=== PATIENT | male | born 1960 | race Caucasian/White ===

== ENCOUNTER 2022-01-04 10:07 | Emergency (ER) | payer BC, SELFPAY ==
--- NOTE | 2022-01-04 10:15 | RT.EKG_ITS ---
APPROVED REPORT Exam: Resting ECG Reason for Exam: dizziness Patient Location: E HR:71 bpm ECG Measurements Heart Rate 71 AXIS OK 165 P 32 QRSd 121 QRS -51 QT 378 T 17 QTc 410 Conclusion Sinus rhythm...normal P axis, V-rate 60- 99 Sinus. No STEMI. I have reviewed and interpreted ECG and agree with software generated interpretation.
[2022-01-04 10:17] VITALS: BP 122/71; PULSE 71; RESP 18; TEMP 36.2; O2SAT 96
[2022-01-04 10:52] LABS: Abs Immature Grans 0.02 10^3/uL (0.0-0.06); Absolute Basophil Count 0.03 10^3/uL (0.0-0.2); Absolute Eosinophil Count 0.07 10^3/uL (0.0-0.7); Absolute Lymphocyte Count 0.92 10^3/uL (1.2-3.4); Absolute Monocyte Count 0.54 10^3/uL (0.1-0.8); Absolute Neutrophil Count 3.48 10^3/uL (1.2-6.7); Basophils % 0.6; Eosinophils % 1.4; HCT 45.1 % (40.0-50.0); HGB 15.9 g/dL (13.5-17.5); Immature Grans % 0.4; Lymphocytes % 18.2; MCH 33.7 pg (27.0-33.0); MCHC 35.3 % (32.0-36.0); MCV 96 fL (80-95); MPV 8.9 fL (8.0-11.0); Monocytes % 10.7; Neutrophils % 68.7; Platelet Count 228 10^3/uL (130-400); RBC 4.72 10^6/uL (4.36-5.78); RDW 12.3 % (11.8-14.1); RDW-SD 43.5 fL; WBC 5.06 10^3/uL (4.4-10.8)
[2022-01-04 11:10] LABS: ALT 38 U/L (16-63); AST 25 U/L (15-37); Albumin 3.7 g/dL (3.4-5.0); Alkaline Phosphatase 58 U/L (46-116); Anion Gap 7.6 mmol/L (3-11); BUN 18 mg/dL (7-18); Bilirubin, Total 0.8 mg/dL (0.2-1.0); CO2 26.4 mmol/L (21.0-32.0); CREATININE 0.9 mg/dL (0.70-1.30); Calcium 8.9 mg/dL (8.5-10.1); Chloride 105 mmol/L (98-107); Glucose 107 mg/dL (74-106); Magnesium 1.8 mg/dL (1.8-2.4); Sodium 139 mmol/L (136-145); Total Protein 7.3 g/dL (6.4-8.2); Troponin I < 50 ng/L (<or=60)
[2022-01-04 11:12] VITALS: RESP 17
--- NOTE | 2022-01-04 11:15 | DI.RAD_ITS ---
Exam(s) XR CHEST 2V PA LATERAL EXAM: XR CHEST 2V PA LATERAL CLINICAL HISTORY: dizziness, r/o acute disease TECHNIQUE: 2D digital imaging was performed. COMPARISON: No exams were available for comparison FINDINGS: MEDIASTINUM: Normal. HEART: Normal. PULMONARY VASCULATURE: Normal. LUNGS: Clear. PLEURAL SPACE: No pleural effusion or pneumothorax. BONE:Unremarkable for age. IMPRESSION: No acute abnormality. DATA REPOSITORY: RADIATION DOSE DELIVERED:
--- NOTE | 2022-01-04 11:15 | DI.CT_ITS ---
Exam(s) CT BRAIN NECK CTA EXAM: CT BRAIN NECK CTA CLINICAL HISTORY: vertigo/lightheaded, r/o acute cva. TECHNIQUE: Imaging Protocol: Axial CT angiography was performed with multi-slice acquisition and mu lti-planar and 3D reconstructions. CONTRAST MATERIAL: Intravenous: Omnipaque 350 Contrast volume:100 COMPARISON: No exams were available for comparison FINDINGS: CT Head W/O and W contrast: Ventricles and Extra axial spaces: Normal in size and morphology for the patient's age. Hemorrhage: None. Cerebral parenchyma: Normal. Midline shift: None. Brainstem/Cerebellum: Normal. Calvarium: Normal. Visualized Paranasal sinuses/Mastoids: Mucous retention at the floor of the right maxillary sinus. Soft Tissues: Unremarkable. Enhancement: Normal. CTA Brain W: Internal Carotid Arteries: Petrous: Normal. Cavernous: Normal. Cerebral: Normal. Middle Cerebral Arteries: Right: No aneurysm, occlusion or significant stenosis. Left: No aneurysm, occlusion or significant stenosis. Anterior Cerebral Arteries: Right: No aneurysm, occlusion or significant stenosis. Left: No aneurysm, occlusion or significant stenosis. Posterior cerebral Arteries: Right: No aneurysm, occlusion or significant stenosis. Left: No aneurysm, occlusion or significant stenosis. Vertebral Arteries: Right: No aneurysm, occlusion or significant stenosis. Left: No aneurysm, occlusion or significant stenosis. Basilar Artery: No aneurysm, occlusion or significant stenosis. CTA Neck W: Common Carotid: Right: No aneurysm, occlusion or significant stenosis. Left: No aneurysm, occlusion or significant stenosis. External Carotid: Right: Unremarkable. Left: Unremarkable. Internal Carotid: Right: Markedly tortuous vessel. No visible plaque. No aneurysm, dissection, occlusion or significa nt stenosis. Left: Markedly tortuous vessel. No visible plaque. No aneurysm, dissection, occlusion or significan t stenosis. Vertebral Artery: Right: No dissection, aneurysm, occlusion or significant stenosis. Left: No dissection, aneurysm, occlusion or significant stenosis. Lung Apices: Normal. Bones: Degenerative disc changes at C5-6 and C6-7. Soft Tissues: Normal. IMPRESSION: 1. Normal CTA examination of the [place]. 2. Unremarkable CT Head. 3. Normal CTA examination of the neck. RADIATION DOSE DELIVERED: 2,355.47mGy.cm Total DLP DATA REPOSITORY: All CT scans at this facility are submitted to the National Radiology Data Registry (NRDR) Dose Index Registry (DIR) with the [employer] (A[employer]). RADIATION OPTIMIZATION: All CT scans at this facility use at least one of these dose optimization te chniques: automated exposure control; mA and/or kV adjustment per patient size (includes targeted exa ms where dose is matched to clinical indication); or iterative reconstruction.
--- NOTE | 2022-01-04 11:26 | ED.GENADUL_ITS ---
Discharge Plan Disposition Patient Disposition: HOME Condition: Improving Discharge Details Clinical Impression: Dizziness Primary Care Provider: Unknown,Unknown ED Provider: Callie Kimbrough Home Meds and New Rx's Prescriptions: No Action No Known Home Meds Discharge Instructions Instructions: Dizziness (ED) Additional Instructions: Your blood tests, EKG and imaging today are reassuring and show no evidence of acute concerning or significant findings. Your Tick and Lyme panel test is pending and you will be notified of any positive results. You can also contact the hospital for your results when available. Drink plenty of fluids and get plenty of rest. Follow-up with your primary care doctor in 1 week. Return to the emergency department with any worsening or new concerning symptoms. Discharge Data Discharge Date/Time-TO BE ENTERED AT DEPARTURE: 01/04/22 18:19 Discharge Physician: Callie Kimbrough Medical Decision Making 61yo M who presents to the ED w/ a c/o 2 episodes of dizziness this week, last one occurring this morning. Patient states he has no symptoms at this time and feels fine. EKG notes rate of 71, sinus tach, no STEMI nondiagnostic. Patient appears comfortable he is nontoxic. His vitals are within normal limits. Normal TMs bilaterally. No focal deficits. No meningeal signs. History and presentation does not appear consistent with ACS, PE, dissection or meningitis. Suspect dehydration considering the increased exertion and decreased p.o. intake in addition to increase in alcohol use in the past week. He demonstrates no signs of alcohol withdrawal. Will obtain labs, chest x-ray, CTA head and neck, give fluids and meclizine and reassess. Labs and imaging reviewed and unremarkable. Will troponin negative. Electrolytes within normal limits. Urinalysis negative. Patient admits to a recent tick bite but denies any known bull's-eye rash. He is requesting a tick and Lyme panel which was obtained and pending. CT head and neck negative. Patient reassessed and he remains asymptomatic. Patient was able to ambulate to the bathroom and denied any complaint of headache, dizziness, chest pain, shortness of breath and would like to go home. He declines prescription for meclizine. He is advised to increase fluids, rest and follow-up with his primary care doctor for evaluation. Usual and customary return precautions given prior to discharge. Medical Records Medical records reviewed: Yes I reviewed the patient's medical records. Imaging Data Radiologic Study: Radiologist's impression: CT BRAIN ? NECK CTA CLINICAL HISTORY: ? vertigo/lightheaded, r/o acute cva. ? TECHNIQUE:? Imaging Protocol:? Axial CT angiography was performed with multi-slice acquisition and multi-planar and 3D reconstructions. CONTRAST MATERIAL:? Intravenous: Omnipaque 350 Contrast volume:100 COMPARISON:? No exams were available for comparison FINDINGS: CT Head W/O and W contrast: Ventricles and Extra axial spaces: Normal in size and morphology for the patient's age. Hemorrhage: None. Cerebral parenchyma: Normal. Midline shift: None. Brainstem/Cerebellum: Normal. Calvarium: Normal. Visualized Paranasal sinuses/Mastoids: Mucous retention at the floor of the right maxillary sinus.? Soft Tissues: Unremarkable. Enhancement: Normal. CTA Brain W: Internal Carotid Arteries: Petrous: Normal. Cavernous: Normal. Cerebral: Normal. Middle Cerebral Arteries: Right:? No aneurysm, occlusion or significant stenosis. Left:? No aneurysm, occlusion or significant stenosis. Anterior Cerebral Arteries: Right:? No aneurysm, occlusion or significant stenosis. Left:? No aneurysm, occlusion or significant stenosis. Posterior cerebral Arteries: Right:? No aneurysm, occlusion or significant stenosis. Left:? No aneurysm, occlusion or significant stenosis. Vertebral Arteries: Right:? No aneurysm, occlusion or significant stenosis. Left:? No aneurysm, occlusion or significant stenosis. Basilar Artery:? No aneurysm, occlusion or significant stenosis. CTA Neck W: Common Carotid: Right:? No aneurysm, occlusion or significant stenosis. Left:? No aneurysm, occlusion or significant stenosis. External Carotid: Right:? Unremarkable. Left: Unremarkable.? Internal Carotid: Right: Markedly tortuous vessel.? No visible plaque.? No aneurysm, dissection, occlusion or significant stenosis. Left: Markedly tortuous vessel.? No visible plaque.? No aneurysm, dissection, occlusion or significant stenosis. Vertebral Artery: Right:? No dissection, aneurysm, occlusion or significant stenosis. Left:? No dissection, aneurysm, occlusion or significant stenosis. Lung Apices: Normal. Bones: Degenerative disc changes at C5-6 and C6-7. Soft Tissues: Normal. IMPRESSION: 1. Normal CTA examination of the [place]. 2. Unremarkable CT Head. 3. Normal CTA examination of the neck.? XR CHEST 2V PA ? LATERAL CLINICAL HISTORY:? dizziness, r/o acute disease TECHNIQUE:? 2D digital imaging was performed. COMPARISON:? No exams were available for comparison FINDINGS: MEDIASTINUM: Normal.? HEART: Normal. PULMONARY VASCULATURE: Normal. LUNGS: Clear. ? PLEURAL SPACE: No pleural effusion or pneumothorax. BONE:Unremarkable for age.? IMPRESSION: No acute abnormality.? Lab Data Lab results reviewed: Yes I reviewed the patient's lab results. Labs: Laboratory Tests Range/Units 01/04/22 01/04/22 01/04/22 10:43 10:43 11:30 WBC (4.4-10.8) 10^3/uL 5.06 RBC (4.36-5.78) 10^6/uL 4.72 Hgb (13.5-17.5) g/dL 15.9 Hct (40.0-50.0) % 45.1 MCV (80-95) fL 96 H MCH (27.0-33.0) pg 33.7 H MCHC (32.0-36.0) % 35.3 RDW (11.8-14.1) % 12.3 Plt Count (130-400) 10^3/uL 228 MPV (8.0-11.0) fL 8.9 Immature Gran % 0.4 Neutrophils % 68.7 Lymphocytes % 18.2 Monocytes % 10.7 Eosinophils % 1.4 Basophils % 0.6 Nucleated RBC % (0.0-0.3) % 0.0 Absolute Neutrophils (1.2-6.7) 10^3/uL 3.48 Absolute Lymphocytes (1.2-3.4) 10^3/uL 0.92 L Absolute Monocytes (0.1-0.8) 10^3/uL 0.54 Absolute Eosinophils (0.0-0.7) 10^3/uL 0.07 Absolute Basophils (0.0-0.2) 10^3/uL 0.03 Sodium (136-145) mmol/L 139 Potassium (3.5-5.1) mmol/L 4.0 Chloride (98-107) mmol/L 105 Carbon Dioxide (21.0-32.0) mmol/L 26.4 Anion Gap (3-11) mmol/L 7.6 BUN (7-18) mg/dL 18 Creatinine (0.70-1.30) mg/dL 0.9 Estimated GFR/1.73 m2 (mL/min/1.73m2) >= 60.00 Glucose (74-106) mg/dL 107 H Calcium (8.5-10.1) mg/dL 8.9 Magnesium (1.8-2.4) mg/dL 1.8 Total Bilirubin (0.2-1.0) mg/dL 0.8 AST (15-37) U/L 25 ALT (16-63) U/L 38 Alkaline Phosphatase (46-116) U/L 58 Troponin I (<or=60) ng/L < 50 Total Protein (6.4-8.2) g/dL 7.3 Albumin (3.4-5.0) g/dL 3.7 Urine Color (Yellow) Yellow Urine Clarity (Clear) Clear Urine pH (5-8) 5.5 Ur Specific [place] (1.005-1.025) 1.010 Urine Protein (Negative) mg/dL Negative Urine Ketones (Negative) mg/dL Negative Urine Blood (Negative) Negative Urine Nitrite (Negative) Negative Urine Bilirubin (Negative) Negative Urine Urobilinogen (Up TO 0.2) EU/dL 0.2 Ur Leukocyte Esterase (Negative) Negative Urine Glucose (Negative) mg/dL Negative ECG Data Attestation: I personally reviewed and interpreted this ECG (s) as follows: Interpretation: rate of 71, sinus, no stemi HPI General Mode of arrival: ambulatory . Date/Time Provider Initiated Documentation: 01/04/22 10:22 . Limitations to Documentation: no limitations . Information obtained by: patient . HPI Narrative: Patient is a 61-year-old male with no significant medical history presents to the ED with a complaint of an episode of dizziness tonight with ago and did not another episode this morning. Patient states he is visiting here from [place] and has mountain biking. Here he states he has been in the active throughout the right days and frequently walking and biking. He he states he had not drink as much water to supplement for his amount of Ex-Lax. He states ago he went to lay down in the bed and noted a sensation of spinning which lasted a few seconds and then resolved. He states he felt fine since then until late morning when he had his arms above his head attempting to manage a light bulb and felt a sensation of lightheadedness and feeling balance. He states that he began walking when he thought he was falling due to feeling off balance. States this lasted a few minutes and then resolved. He denies any symptoms of headache, blurry vision, chest pain, shortness of breath, abdominal pain, nausea, vomiting or diarrhea and continued episodes. ED he states he has been drinking 2-3 alcoholic drinks daily for the past weekly while on vacation. He states that his last drink was last night. States the today home COVID test due to his symptoms of dizziness 2 days ago which was negative. Patient currently denies any symptoms at this time and states I feel fine now. Related Data Home Medications Medication Instructions Recorded Confirmed Unknown [No Known Home Meds] 01/04/22 01/04/22 Allergies Allergy/AdvReac Type Severity Reaction Status Date / Time Sulfa (Sulfonamide Allergy Hives Unverified 01/04/22 10:20 Antibiotics) General Stated Complaint: Dizzy/Sync DIANE: 3 Review of Systems All systems reviewed & are unremarkable except as noted in HPI and below Constitutional Constitutional: Denies chills, Denies excessive sweating, Denies fatigue, Denies fever(s), Denies weakness and Denies weight loss Eyes Eyes: Reports system reviewed and no additional complaints, except as documented and Denies blurry vision ENT Ears, Nose, Mouth, and Throat: Denies vertigo, Reports dizziness, Denies otalgia, Denies nasal congestion, Denies sore throat and Denies throat swelling Cardiovascular Cardiovascular: Denies chest pain, Denies syncope, Denies rapid heart rate and Denies dyspnea Respiratory Respiratory: Denies chest congestion, Denies cough, Denies pain on inspiration and Denies dyspnea Gastrointestinal Gastrointestinal: Denies abdominal pain, Denies diarrhea and Denies vomiting Genitourinary Genitourinary: Denies hematuria, Denies dysuria and Denies flank pain Musculoskeletal Musculoskeletal: Denies back pain and Denies joint swelling Integumentary/Breasts Skin/Breast: Denies lesions and Denies rash Neurologic Neurologic: Denies behavioral changes, Denies confusion, Denies vertigo, Reports dizziness, Denies syncope, Denies localized weakness and Denies weakness Psychiatric Psychiatric: Denies behavioral changes, Denies confusion and Denies depression Endocrine Endocrine: Denies excessive sweating and Denies fatigue Hematologic/Lymphatic Hematologic/Lymphatic: Denies easy bruising and Denies lymphadenopathy Allergic/Immunologic Allergic/Immunologic: Denies throat swelling PFSH All Active Problems (Updated 01/04/22 @ 13:17 by Callie Kimbrough DO) Dizziness (Acute) Medical History (Updated 01/04/22 @ 13:17 by Callie Kimbrough DO) No significant past medical history Surgical History (Updated 01/04/22 @ 11:26 by Callie Kimbrough DO) H/O arthroscopy of left knee History of hernia repair Social History Smoking/Tobacco Use Status: Never Smoking risk assessment performed?: Yes Alcohol Intake: current Alcohol Intake frequency: a few times a week Drug use: Never Substance use type: does not use Details: THC gummies for sleep Do you feel safe at home: Yes Do you feel safe in your relationship?: Yes Exam Const General: cooperative and healthy appearing Orientation: alert, awake and oriented x3 HENMT Head: normal to inspection Ears: hearing grossly normal bilaterally, external ears normal and TM's normal bilaterally General nose exam: external nose normal Face and sinus: normal facial exam Mouth: oral mucosae normal Teeth and gingiva: dentition normal Throat: posterior oropharynx normal Eyes General: appearance normal, both eyes and all related structures Eyelids: eyelids normal Pupils: PERRL EOM: EOM intact bilaterally Neck Neck: normal visual inspection Lymphatic: no lymphadenopathy noted Chest Chest: normal inspection of the chest Resp Effort & Inspection: normal respiratory effort and able to speak in complete sentences Auscultation: clear to auscultation bilaterally Cardio Rate: regular rate Rhythm: regular rhythm GI Inspection: normal to inspection Palpation: soft, not firm, no guarding, no hepatosplenomegaly, no masses and nontender Auscultation: normal bowel sounds Back/Spine/Pelvis Back: no CVA tenderness Skin General skin exam: no rashes or lesions noted Neuro General: patient alert, patient awake, patient oriented x3, moves all extremities and no meningeal signs Cognition: normal cognition Speech: speech normal Gait: normal gait Motor: muscle tone normal throughout and strength 5/5 throughout Sensory Exam: no sensory deficits noted Extrem General: normal to inspection, full ROM, capillary refill normal and no edema Psych Appearance: grossly normal Mental Status: mental status grossly normal Speech and Movement: speech and movement normal Affect: normal affect Thought Process: normal Course Vital Signs Vital signs: Vital Signs Temperature 97.2 F L 01/04/22 10:17 Pulse 71 01/04/22 10:17 Respiratory Rate 18 01/04/22 10:17 Blood Pressure 122/71 01/04/22 10:17 Pulse Oximetry 96 01/04/22 10:17 Temperature 97.2 F L 01/04/22 10:17 Pulse 71 01/04/22 10:17 Respiratory Rate 17 01/04/22 11:12 Respiratory Effort Non-Labored 01/04/22 11:12 Respiratory Depth Normal 01/04/22 11:12 Respiratory Pattern Normal 01/04/22 11:12 Blood Pressure 122/71 01/04/22 10:17 Blood Pressure Position Sitting 01/04/22 10:17 Pulse Oximetry 96 01/04/22 10:17 Oxygen Delivery Method Room Air 01/04/22 10:17 Oxygen Flow Rate 0 01/04/22 10:17 Lab/Test Results Lab/Test Results: Laboratory Tests Range/Units 01/04/22 01/04/22 10:43 10:43 WBC (4.4-10.8) 10^3/uL 5.06 RBC (4.36-5.78) 10^6/uL 4.72 Hgb (13.5-17.5) g/dL 15.9 Hct (40.0-50.0) % 45.1 MCV (80-95) fL 96 H MCH (27.0-33.0) pg 33.7 H MCHC (32.0-36.0) % 35.3 RDW (11.8-14.1) % 12.3 Plt Count (130-400) 10^3/uL 228 MPV (8.0-11.0) fL 8.9 Immature Gran % 0.4 Neutrophils % 68.7 Lymphocytes % 18.2 Monocytes % 10.7 Eosinophils % 1.4 Basophils % 0.6 Nucleated RBC % (0.0-0.3) % 0.0 Absolute Neutrophils (1.2-6.7) 10^3/uL 3.48 Absolute Lymphocytes (1.2-3.4) 10^3/uL 0.92 L Absolute Monocytes (0.1-0.8) 10^3/uL 0.54 Absolute Eosinophils (0.0-0.7) 10^3/uL 0.07 Absolute Basophils (0.0-0.2) 10^3/uL 0.03 Sodium (136-145) mmol/L 139 Potassium (3.5-5.1) mmol/L 4.0 Chloride (98-107) mmol/L 105 Carbon Dioxide (21.0-32.0) mmol/L 26.4 Anion Gap (3-11) mmol/L 7.6 BUN (7-18) mg/dL 18 Creatinine (0.70-1.30) mg/dL 0.9 Estimated GFR/1.73 m2 (mL/min/1.73m2) >= 60.00 Glucose (74-106) mg/dL 107 H Calcium (8.5-10.1) mg/dL 8.9 Magnesium (1.8-2.4) mg/dL 1.8 Total Bilirubin (0.2-1.0) mg/dL 0.8 AST (15-37) U/L 25 ALT (16-63) U/L 38 Alkaline Phosphatase (46-116) U/L 58 Troponin I (<or=60) ng/L < 50 Total Protein (6.4-8.2) g/dL 7.3 Albumin (3.4-5.0) g/dL 3.7 PAWSS Have you Been Recently Intoxicated or Drunk Within the Last 30 days?: No Have you Ever Experienced Previous Episodes of Alcohol Withdrawal?: No Have you ever Experienced Withdrawal Seizures?: No Have you ever Experienced Delirium Tremens(DT)s?: No Have you ever undergone Alcohol Rehabilitation Treatment (i.e, inpt ot outpatient treatment programs)?: No Have you ever Experienced Blackouts?: No Have you ever Combined Alcohol with other Downers within the last 90 days?: No Have you ever Combined Alcohol with any other Substance of Abuse during the last 90 days?: No Positive Blood Alcohol level on Presentation? [PCS.BAL]: No Evidence of Increased Autonomic Activity (i.e. HR>120, tremor, sweating, agitation, nausea)?: No Result: 0
[2022-01-04] MEDS: Normal Saline 1,000 ML 1000 ML IV (11:28)
[2022-01-04] MEDS: Meclizine 25 MG TAB PO (11:28)
[2022-01-04] MEDS: Omnipaque 350 MG/ML 100 ML BTL IJ (12:00)
[2022-01-04 12:07] VITALS: BP 116/69; PULSE 66; RESP 14; O2SAT 98
[2022-01-04 12:13] LABS: Bilirubin Negative (Negative); Blood Negative (Negative); Clarity Clear (Clear); Glucose Negative (Negative); Ketones Negative (Negative); Leukocyte Esterase Negative (Negative); Nitrite Negative (Negative); Urobilinogen 0.2 EU/dL (Up TO 0.2); pH 5.5 (5-8)
[2022-01-04 13:28] VITALS: BP 122/74; PULSE 62; RESP 18; TEMP 36.8; O2SAT 98
[2022-01-07 10:16] LABS: Lyme Ab w Rflx to Lyme Confirm Negative (Negative)
[2022-01-07 21:09] LABS: Anaplasma phagocytophilum Negative (Negative); B. miyamotoi PCR Negative (Negative); Babesia divergens/MO-1 Negative (Negative); Babesia duncani Negative (Negative); Babesia microti Negative (Negative); Ehrlichia chaffeensis Negative (Negative); Ehrlichia ewingii/canis Negative (Negative); Ehrlichia muris eauclairensis Negative (Negative)
== END 2022-01-04 18:19 | disposition home or self-care (01) ==
PROVIDERS: Emergency Provider Physician Assistant
DX: R42 Dizziness and giddiness (principal)
CPT/HCPCS: 36415; 70496; 70498; 80053; 87798; 93005; 96360; 99285; 71046; 81003; 83735; 84484; 85025; 86618; 93010; J3490

== ENCOUNTER 2024-01-08 04:22 | Outpatient (CLI) | payer MEDICARE, BC, SELFPAY ==
[2024-01-08 12:53] LABS: Calculated LDL 78 mg/dL (<100); Cholesterol 166 mg/dL (<200); HDL Cholesterol 78 mg/dL (40-60); Triglyceride 52 mg/dL (<150)
[2024-01-08 13:00] LABS: Hemoglobin A1C 4.8 % (<5.7)
[2024-01-08 20:32] LABS: PSA, Screening 1.6 ng/mL (<=4.5)
== END 2024-01-08 04:23 | disposition home or self-care (01) ==
LOC: LOS 04:23
PROVIDERS: PCP Nurse Practitioner Family; Visit Provider Nurse Practitioner Family
DX: Z12.5 Encounter for screening for malignant neoplasm of prostate (principal); Z13.1 Encounter for screening for diabetes mellitus; Z13.6 Encounter for screening for cardiovascular disorders; Z12.83 Encounter for screening for malignant neoplasm of skin
CPT/HCPCS: 36415; 80061; 84153; 83036

== ENCOUNTER → 2024-09-16 07:29 | Outpatient (BNVA) | payer MEDICARE, BC, SELFPAY | PROVIDERS: PCP Nurse Practitioner Family; Referring Provider Nurse Practitioner Family; Visit Provider Physical Therapy Assistant | DX: Z12.11 Encounter for screening for malignant neoplasm of colon (principal); Z86.0100 Personal history of colon polyps, unspecified ==

== ENCOUNTER 2024-10-15 07:40 | Day surgery (SDC) | payer MEDICARE, BC, SELFPAY ==
--- NOTE | 2024-10-14 16:52 | W.PM.DSUDISC ---
Date of service: 10/15/24 Discharge Plan Disposition Patient Disposition: Home Condition: Good Discharge Details Reason For Visit: Screening colonoscopy Attending Provider: Lincoln Orosco Primary Care Provider: Jamir Pope Home Meds and New Rx's Prescriptions: Continued Boostrix Tdap 2.5-8-5 Lf-mcg-Lf/0.5mL syringe 0.5 ml IM ONCE Qty: 0.5 0RF Rx Instructions: as a single dose Discontinued bisacodyl [Dulcolax (bisacodyl)] 5 mg tablet,delayed release (DR/EC) 5 mg PO ONCE Qty: 4 0RF Rx Instructions: Take per colonoscopy instructions provided by ordering providers office polyethylene glycol 3350 17 gram/dose powder 17 g PO ONCE Qty: 238 0RF Rx Instructions: Take per colonoscopy instructions provided by ordering providers office Discharge Instructions Instructions: Diverticulosis Additional Instructions: Rodriguez was pleasure meeting you today, and I hope you feel great after the procedure. Things went very smoothly. Your prep was excellent, and I could see everything fine. I did not see any signs of tumors or polyps today. You do have some diverticulosis. I will attach some basic information here about typical approaches to diverticular management. Otherwise, with a negative colonoscopy today, and a negative colonoscopy in 2020, it is very recent to go back to a 10-year screening interval. If you have any questions at all, please do not hesitate to ask at any time. 1. If tolerated, consume a soft, low fiber diet for 1-2 days. [address] not drive, drink alcohol, operate machinery, make critical decisions, or do activities that require coordination or balance for 24 hours. 3. Because air was put into your colon during the procedure, expelling air from your rectum (passing gas or farting) is normal. 4. You may not have a bowel movement for 1-3 days because of the colonoscopy prep. This is normal. 5. Go directly to the emergency room if you notice any of the following: Develop chills (warm to touch), or if you have a thermometer and your temperature is above 101 Difficulty breathing or difficultly swallowing Persistent vomiting Severe abdominal pain, other than gas cramps Severe chest pain Black, tarry stools Any bleeding ? exceeding one tablespoon 6. Call your physician if the site where your intravenous was started becomes red, swollen, painful, and warm to touch. 7. Your physician has reviewed your pre-procedure medications. Please continue to take those medications as previously ordered. You will be given specific information/education regarding any changes to your medications before leaving. Stand Alone Forms: Anesthesia Discharge Inst., Colonoscopy Post Instructions, [place] [place] (DS[facility]) Activity:: Activity as Tolerated Diet:: As Tolerated Discharge Orders Discharge Orders: Discharge Order (Routine); Ordered 10/14/24 Ordered By: Lincoln Orosco DS: Diagnosis Discharge Diagnosis (1) Encounter for screening colonoscopy: Status: Acute Asessment and Plan: Diverticulosis; otherwise negative screening colonoscopy
--- NOTE | 2024-10-14 16:53 | W.COLOREPORT ---
Date of service: 10/15/24 Time of Service: 09:32 Colonoscopy Report Date of procedure: 10/15/24 Pre-op diagnosis general: Screening colonoscopy Post-op diagnosis procedure note: other (Diverticulosis) Procedure: Colonoscopy Surgeon: Lincoln Orosco Anesthesia Type: General:No Airway Estimated blood loss (mL): 0 Pathology: none sent Complications: None Disposition: same day Indications: Rodriguez is a 63-year-old male. Sounds like he previously had adenomatous polyps. He gets his next screening colonoscopy Prep: Miralax/Dulcolax Procedure Start Time: 09:10 Procedure End Time: 09:23 Retraction Time: 8 Findings: Diverticulosis Procedure Description: After the induction of anesthesia, and with Rodriguez in left lateral decubitus position, I began by performing an external anorectal exam.? Perineum and skin were normal, as was the anal verge.? There was no evidence of external hemorrhoids.? Next, I performed a digital rectal exam.? I did not appreciate any abnormal findings.? Next, I advanced a colonoscope into the rectal vault.? I performed retroflexion.? There are internal hemorrhoids.? Using irrigation, I then advanced the colonoscope beyond the rectal folds and into the sigmoid colon before advancing towards the cecum.?The scope was noted to be in the cecum by identification of the ileocecal valve and appendiceal orifice.? I then began withdrawing the colonoscope using repeated irrigation as necessary for full evaluation of the colonic mucosa. There is diverticulosis in all the segments of the colon, but it is most heavily concentrated in the sigmoid. ?Once the scope was withdrawn to the level of the rectum, great care was taken to examine portions of the rectal folds. In the upper portion of the rectal vault was a previous colonoscopic tattoo. Several passes were taken across this area. I did not see any signs of any polyps here finally, the scope was withdrawn and the patient was brought to the same-day surgery recovery unit as the anesthetic wore off. ?The findings and instructions were shared with the patient prior to discharge. [place] Bowel Prep [place] Bowel Prep Right Colon: 3 Left Colon: 3 Transverse Colon: 3 Total Score: 9
[2024-10-15 07:45] VITALS: BP 102/72; PULSE 61; RESP 16; TEMP 36.2; O2SAT 97
[2024-10-15] MEDS: Lactated Ringers 1,000 ML 80 ML IV (08:10)
[2024-10-15 08:58] VITALS: BMI 28.2
--- NOTE | 2024-10-15 08:58 | W.ANESPRE ---
General Info Date of Service Date Performed: 10/15/24 Height: 5 ft 10.5 in Weight: 90.6 kg Body Mass Index (BMI): 28.2 Surgical Procedure: Operation Date: 10/15/24 09:05 Proposed Procedure Side Surgeon p Colonoscopy Lincoln Orosco MD Actual Procedure Side Surgeon p Colonoscopy Not Applicable Lincoln Orosco MD Pre-Op Diagnosis Post-Op Diagnosis Screening colonoscopy Meds Allergies and Home Medications Allergies Allergy/AdvReac Type Severity Reaction Status Date / Time cephalexin Allergy Intermediate hives Verified 10/15/24 07:58 Sulfa (Sulfonamide Allergy Hives Verified 10/15/24 07:58 Antibiotics) Home Medication ?Medication ?Instructions ?Recorded diphth,pertus(acell),tetanus 2.5 0.5 ml IM ONCE #0.5 mL 01/05/24 Lf unit-8 mcg-5 Lf/0.5mL IM syringe (Boostrix Tdap) Current Visit Medications: Current Medications Generic Name Dose Route Start Last Admin Trade Name Freq PRN Reason Stop Dose Admin Ringer's Solution 1,000 mls @ 80 mls/hr 10/15/24 06:00 10/15/24 08:10 IV 10/15/24 23:59 80 mls/hr INFUSION NIXON Administration IV Miscellaneous Supplies 1 each 10/15/24 06:00 Iv Access IV 10/15/24 23:59 DIRECTED NIXON Ondansetron HCl 4 mg 10/14/24 16:54 Ondansetron 4 Mg/2 Ml Vial IVP 11/13/24 16:53 Q4H PRN PRN Nausea / Vomiting Sodium Chloride 0 ml 10/15/24 06:00 Normal Saline Flush 10 Ml Syr IV 10/15/24 23:59 PRN PRN Sodium Chloride 0 ml 10/15/24 06:00 Normal Saline 10 Ml Vial IJ 10/15/24 23:59 DIRECTED PRN Sterile Water 0 ml 10/15/24 06:00 Water,Injection,Sterile 10 Ml Vial IJ 10/15/24 23:59 DIRECTED PRN PFSH Active Problems Active Problems: Problem Status Onset Code Encounter for screening colonoscopy Acute Z12.11 Medical History Medical History Osteoarthritis of knee (~07/2021) Seborrheic keratoses Cryo 08/12/2022 Nasal septal deviation due to trauma Surgical History Surgical History H/O nasal septoplasty (09/26/22) septoplasty and inferior turbinectomy w/out fracture History of left knee replacement (~07/2022) History of hernia repair H/O arthroscopy of left knee Tobacco Smoking/Tobacco Use Status: Never Passive smoking exposure: Yes Second hand exposure: Yes Alcohol Alcohol Intake: current Alcohol intake frequency: a few times a week Alcohol type: beer, wine and hard liquor Substance Use Substance use: Rarely Substance use type: marijuana Details: THC gummies for sleep Vital Signs and Lab Results Vital Signs Most Recent Vital Signs in EMR: Most Recent Vital Signs Temp Pulse Resp BP Pulse Ox 36.2 C L 61 16 102/72 97 10/15/24 07:45 10/15/24 07:45 10/15/24 07:45 10/15/24 07:45 10/15/24 07:45 Lab Results Blood Type / Crossmatch: No Data to Display Complete Blood Count: No Data to Display Complete Metabolic Panel: No Data to Display Liver Function Panel: No Data to Display Coagulation Panel: No Data to Display Cardiac Panel: No Data to Display Arterial Blood Gas: No Data to Display Venous Blood Gas: No Data to Display Pancreas Panel: No Data to Display Thyroid Panel: No Data to Display Infectious Disease: No Data to Display Blood Cultures: No Data to Display Toxicology Panel: No Data to Display Anesthesia Assessment and Plan Anesthesia History Personal History: No History of Anesthesia Complications Family History: No Family History of Anesthesia Complications Exercise Tolerance Exercise Tolerance: Metabolic Equivalents>4 Pertinent Negatives Pertinent Negatives: No Symptoms of GERD Cardiac & Pulmonary Exam Cardiac Exam: Normal S1/S2 Heart Sounds Pulmonary Exam: Clear Bilateral Breath Sounds Implantable Cardiac Device Does patient have a Pacemaker or an ICD?: No Airway Exam Known Difficult Airway: No Mallampati Class: 2 Mouth Opening: Normal (> 3cm) Thyromental Distance: Greater than 3 cm Neck Range of Motion: Full ROM Neck Circumference: Normal Teeth Condition: Normal Dentition ASA Classification ASA Score: ASA 2 Emergency Case?: No NPO Status NPO Status: NPO Clears >2 hours, Solids >8 hours Anesthesia Plan Resuscitation Status: Full Code Anesthesia Technique: General Anesthesia Airway Planned: Natural Airway Monitors Used: Standard Monitors
[2024-10-15 09:29] VITALS: BP 99/68; PULSE 62; RESP 16; TEMP 36.6; O2SAT 94
--- NOTE | 2024-10-15 09:44 | W.ANESPOSTOP ---
Postoperative Evaluation Date, Time and Location Date Performed: 10/15/24 Time Performed: 09:45 Patient Location: Day Surgery Unit Vital Signs Most Recent Imported Vital Signs: Most Recent Vital Signs Temp Pulse Resp BP Pulse Ox 36.6 C 62 16 99/68 L 94 10/15/24 09:29 10/15/24 09:29 10/15/24 09:29 10/15/24 09:29 10/15/24 09:29 Pain Score Most Recent Pain Score: Most Recent Pain Score Pain Level 0 10/15/24 09:29 Assessment Mental Status: Awake (Alert & Oriented to Patient Baseline) Airway and Respiratory Function: Patent airway with normal (patient baseline) respiratory exam Cardiovascular Function: Hemodynamically Stable Hydration Status: Adequately Hydrated Nausea & Vomiting: No Nausea or Vomiting Pain: Pt. Denies Any Pain Peripheral Nerve Block: Patient did not receive a nerve block
[2024-10-15 10:00] VITALS: BP 101/78; PULSE 61; RESP 16; TEMP 36.1; O2SAT 97
== END 2024-10-15 10:24 | disposition home or self-care (01) ==
LOC: SUR 07:40
PROVIDERS: PCP Nurse Practitioner Family; Visit Provider Surgery
PROC: 0DJD8ZZ Inspection of Lower Intestinal Tract, Via Natural or Artificial Opening Endoscopic (ICD-10-PCS; CPT 45378; principal; 2024-10-15 09:00)
DX: Z12.11 Encounter for screening for malignant neoplasm of colon (principal); K57.30 Diverticulosis of large intestine without perforation or abscess without bleeding; Z86.0100 Personal history of colon polyps, unspecified
CPT/HCPCS: G0105; J2003; J2704